=== PATIENT | female | born 1985 | race American Indian/Alaskan Native ===

== ENCOUNTER 2017-12-01 10:12 | Emergency (ER) | payer SELFPAY ==
--- NOTE | 2017-12-01 12:07 | Emergency Department Report ---
ED Eye Problem HPI - General Chief complaint: Eye Problems Stated complaint: DIZZY/SOB Time Seen by Provider: 12/01/17 11:38 Source: patient Mode of arrival: Ambulatory Limitations: No Limitations - History of Present Illness Initial comments: This is a 32-year-old female here complaining of flickering vision that started this morning while she was in the shower. She stated that she thought the lights were going in and out but they were not. Patient also complaint of dizziness and blurred vision. She complained of shortness of breath with exertion. Patient denies any headache or neck pain. Denies any head trauma. Patient does report that she has a history of depression and was on Remeron 8 years ago and was able to come off and she said she is having the same feeling as previously and was started on Remeron 2 weeks ago and she is not sure if this is causing her symptoms but she called her eye doctor and they told her she needs to come to the emergency room. Pain is 0 out of 10. MD chief complaint: vision change -: This morning Onset Description: sudden Location: both eyes Place: home If Injury: none Eye Symptoms: blurry vision, other (Flicker in vision) Severity scale (0 -10): 0 Associated Symptoms: other (dizziness). denies: headache, neck pain, nausea/ vomiting, cough, rhinorrhea, fever, shortness of breath Treatments Prior to Arrival: none - Related Data Patient Tetanus UTD: Yes Home Medications Medication Instructions Recorded Confirmed Last Taken Mirtazapine [Remeron] 30 mg PO DAILY 12/01/17 12/01/17 Unknown No Known Home Medications [No 12/01/17 12/01/17 Unknown Reported Home Medications] Allergies Allergy/AdvReac Type Severity Reaction Status Date / Time No Known Allergies Allergy Unverified 12/01/17 10:43 ED Review of Systems ROS: Stated complaint: DIZZY/SOB Other details as noted in HPI Constitutional: denies: chills, fever Eyes: vision change. denies: eye pain, eye discharge ENT: denies: ear pain, throat pain, epistaxis, congestion Respiratory: denies: cough, shortness of breath, SOB with exertion, SOB at rest , stridor, wheezing Cardiovascular: denies: chest pain, palpitations, edema, syncope, paroxysmal nocturnal dyspnea Gastrointestinal: denies: abdominal pain, nausea, vomiting, diarrhea Genitourinary: denies: urgency, dysuria, discharge Musculoskeletal: denies: back pain, joint swelling, arthralgia Skin: denies: rash, lesions Neurological: other (dizziness). denies: headache, weakness, numbness, paresthesias, confusion, abnormal gait, vertigo Psychiatric: depression. denies: anxiety, auditory hallucinations, visual hallucinations, homicidal thoughts, suicidal thoughts Hematological/Lymphatic: denies: easy bleeding, easy bruising ED Past Medical Hx - Past Medical History Previous Medical History?: No - Surgical History Past Surgical History?: Yes Additional Surgical History: hernia repair as a child - Social History Smoking Status: Never Smoker Substance Use Type: None - Medications Home Medications: Home Medications Medication Instructions Recorded Confirmed Last Taken Type Mirtazapine [Remeron] 30 mg PO DAILY 12/01/17 12/01/17 Unknown History No Known Home Medications [No 12/01/17 12/01/17 Unknown History Reported Home Medications] ED Physical Exam - General Limitations: No Limitations General appearance: alert, in no apparent distress - Head Head exam: Present: atraumatic, normocephalic, normal inspection, other (normal exam) - Eye Eye exam: Present: normal appearance, PERRL, EOMI. Absent: conjunctival injection, nystagmus, periorbital swelling, periorbital tenderness Pupils: Present: normal accommodation - Expanded Eye Exam Expanded Eyelids: Normal Inspection: Right (bilateral) Pupils: Regular, Round: Bilateral, Reactive: Bilateral Sclera/Conjunctival: Normal Inspection: Bilateral Anterior chamber: Normal Inspection: Bilateral Posterior chamber: Normal Inspection: Bilateral Visual acuity (R) = 20/: 20 (20/25 both eyes) Visual acuity (L) = 20/: 20 (funduscopic exam normal) With correction: No (funduscopi) - ENT ENT exam: Present: normal exam, normal orophraynx, mucous membranes moist, TM's normal bilaterally, normal external ear exam, other (nasal mucosa normal exam and frontal mass or sinus is nontender to palpate) - Neck Neck exam: Present: normal inspection, full ROM, other (C-spine nontender to palpate). Absent: tenderness, meningismus, lymphadenopathy, thyromegaly - Respiratory Respiratory exam: Present: normal lung sounds bilaterally. Absent: respiratory distress, chest wall tenderness - Cardiovascular Cardiovascular Exam: Present: regular rate, normal rhythm, normal heart sounds. Absent: systolic murmur, diastolic murmur - GI/Abdominal GI/Abdominal exam: Present: soft, normal bowel sounds. Absent: distended, tenderness, guarding, rebound, rigid, organomegaly, mass, bruit, pulsatile mass - Extremities Exam Extremities exam: Present: normal inspection, full ROM, normal capillary refill , other (No cce. + 2 pulses in all extremities, no neurovascular compromise). Absent: tenderness, pedal edema, joint swelling, calf tenderness - Back Exam Back exam: Present: normal inspection, full ROM, other (ambulates without any difficulties.). Absent: tenderness, CVA tenderness (R), CVA tenderness (L), muscle spasm, paraspinal tenderness, vertebral tenderness, rash noted - Neurological Exam Neurological exam: Present: alert, oriented X3, normal gait, motor sensory deficit. Absent: reflexes normal - Expanded Neurological Exam Expanded Neurological exam: Absent: innattentive, memory loss-remote event, memory loss- recent event, ataxia, receptive aphasia, expressive aphasia, total aphasia, tremor, protecting the airway Patient oriented to: Present: person, place, time Speech: Present: fluid speech Cranial nerves: EOM's Intact: Normal, Gag Reflex: Normal, Tongue Deviation: Normal, Nystagmus: Normal, Facial Sensation: Normal Cerebellar function: Romberg: Normal Upper motor neuron: Pronator Drift: Normal, Sensory Extinction: Normal Sensory exam: Upper Extremity Light Touch: Normal, Upper Extremity Temperature: Normal, UE 2 Point Discrimination: Normal, Lower Extremity Light Touch: Normal, Lower Extremity Temperature: Normal, LE 2 Point Discrimination: Normal Motor strength exam: RUE: 5, LUE: 5, RLE: 5, LLE: 5 DTR: bicep (R): 2+, bicep (L): 2+, tricep (R): 2+, tricep (L): 2+, knee (R): 2+ , knee (L): 2+, ankle (R): 2+, ankle (L): 2+ Best Eye Response ([place]): (4) open spontaneously Best Motor Response ([place]): (6) obeys commands Best Verbal Response ([place]): (5) oriented [place] Total: 15 - Psychiatric Psychiatric exam: Present: normal affect, normal mood - Skin Skin exam: Present: warm, dry, intact, normal color. Absent: rash ED Course Vital Signs 12/01/17 12/01/17 10:43 15:43 Temperature 98.4 F Pulse Rate 87 80 Respiratory 16 16 Rate Blood Pressure 121/80 Blood Pressure 126/76 [Right] O2 Sat by Pulse 100 100 Oximetry - Reevaluation(s) Reevaluation #1: 12/01/17 14:55 Patient asymptomatic throughout ED stay. No change in neurological status. ED Medical Decision Making - Radiology Data Radiology results: report reviewed CT brain contrast done and dictated by radiologist and report reviewed by myself and no abnormalities seen. See report below Patient: CONNOR PURCELL MR#: [id number] : 1985 Acct:[id number] Age/Sex: 32 / F ADM Date: 12/01/17 Loc: ED Attending Dr: Ordering Physician: RENZO PALAFOX Date of Service: 12/01/17 Procedure(s): CT head/brain wo con Accession Number(s): [id number] cc: RENZO PALAFOX CT HEAD WITHOUT CONTRAST: HISTORY: Dizziness, blurred vision. TECHNIQUE: Sequential 2.5mm CT images. COMPARISON: none. FINDINGS: Cerebral Parenchyma: Within normal limits. Cerebellum: Within normal limits. Brainstem: Within normal limits. Ventricles: Normal. Sella: Normal. Extra-axial spaces: Normal. Basal Cisterns: Normal. Intracranial Hemorrhage: None. Midline Shift: None. Calvarium: Normal. Sinuses: Normal. Mastoid Air Cells: Normal. Visualized Orbits: Normal. IMPRESSION: Cranial CT scan within normal limits. Transcribed By: TTR Dictated By: LESLIE KAUR JR, MD Electronically Authenticated By: LESLIE KAUR JR, MD Signed Date/Time: 12/01/171403 DD/ 03 TD/TT: 12/01/171403 - Medical Decision Making This is a 32-year-old patient presented to the emergency room reported that this morning in she had visual difficulties to include seeing spots, flashing lights and blurred vision. She reports some dizziness but denies any headache, neck pain or any head injury. No previous insulin-dependent. Patient has a history of depression and she was on Remeron for 8 years and she says she just started back to weeks ago. She says she called her customer field representative and he told to come to the emergency room for CT scan of the head. This is that she has customer field representative because she wears glasses which are very minimal prescription. Patient with seen and examined by myself. She is neurologically intact with normal neck and back exam. Her eye exam is normal to include her visual acuity without glasses. Patient has CT scan of the head without contrast and this was dictated by radiologist and report reviewed by myself and there are no intracranial or extracranial abnormality found. This case was discussed with Dr. Jerry Lee. I discussed the patient that her CT scan of the head was negative findings and she needs to follow-up with her customer field representative to have eye exam although her eye exam emergency room was normal to include funduscopic exam. She voiced understanding. I also discussed with pt she should talk to her psychiatrist regarding Remeron prescription and probably change in it to something else because she reports that when she was on a 8 years ago she gained 75 pounds. She says she started feeling depressed again and she found a psychiatrist and told him that she was on Remeron and the psychiatrist just ordered it. Patient said she is not pleased with her psychiatrist but she is a psychologist also that she is okay with. She is requesting referral to another psychiatrist which I told her I will give her referral. Patient is not suicidal or homicidal and she said she is not feeling depressed at this moment. A/P patient with visual disturbance and dizziness-which is episodic. She has CT scan of the head which was negative and this is discussed the patient so she will be following up with her customer field representative and psychiatrist for further treatment and evaluation. Patient discharged her emergency room and stable condition. Vital signs are stable she is afebrile and no change in neurological status while in the emergency room. - Differential Diagnosis intracranial versus extracranial ophthalmology, vertigo, visual disturbance Critical care attestation.: If time is entered above; I have spent that time in minutes in the direct care of this critically ill patient, excluding procedure time. ED Disposition Clinical Impression: Visual disturbance, Dizziness Disposition: DC-01 TO HOME OR SELFCARE Is pt being admited?: No Does the pt Need Aspirin: No Condition: Stable Instructions: Blurred Vision (ED), Dizziness (ED) Additional Instructions: Please follow-up with your customer field representative in 3 days for eye exam. Follow-up your psychiatrist regarding medication. If he symptoms return, return to emergency room Referrals: PRIMARY CARE, [Primary Care Provider] - 12/01/17 follow-up with your, customer field representative in 3 days [Other] - 12/04/17 follow-up with, Dr. Jessi Singh [Other] - 3-5 Days Forms: Work/School Release Form(ED)
--- NOTE | 2017-12-01 14:11 | Cat Scan Report ---
CT HEAD WITHOUT CONTRAST: HISTORY: Dizziness, blurred vision. TECHNIQUE: Sequential 2.5mm CT images. COMPARISON: none. FINDINGS: Cerebral Parenchyma: Within normal limits. Cerebellum: Within normal limits. Brainstem: Within normal limits. Ventricles: Normal. Sella: Normal. Extra-axial spaces: Normal. Basal Cisterns: Normal. Intracranial Hemorrhage: None. Midline Shift: None. Calvarium: Normal. Sinuses: Normal. Mastoid Air Cells: Normal. Visualized Orbits: Normal. IMPRESSION: Cranial CT scan within normal limits.
[2017-12-01 15:45] VITALS: BP 126/76
== END 2017-12-01 15:15 | disposition home or self-care (01) ==
LOC: ED 10:12
DX: H53.9 Unspecified visual disturbance (principal)
CPT/HCPCS: 70450; 99283